=== PATIENT | female | born 1965 | race Caucasian/White ===

== ENCOUNTER 2024-10-30 10:14 | Outpatient (AMB) | payer OTHER, SELFPAY ==
--- NOTE | 2024-10-30 10:14 | A.OFFPC_ITS ---
Vital Signs 10/30/24 10:17 Height 4 ft 11.25 in Weight 155 lb BMI 31.0 BP 140/82 H Blood Pressure Location Rt brachial Pulse 86 Pulse Source Pulse Oximeter Temp 97.0 F Pulse Oximetry (%) 98 Intake Visit Reasons: Irritable bowel syndrome Intake Note: needs mammogram Enamel Drier Required: No Tonal Regulator: Not Required per policy Allergies No Known Allergies Allergy (Verified 10/30/24 11:00) Medication List - Last Reconciled 10/30/24 by Kalyani Kong PA-C dextroamphetamine-amphetamine 15 mg (Adderall) 15 mg PO DAILY dicyclomine 10 mg PO QID PRN loperamide 2 mg PO QID PRN lorazepam (Ativan) 0.5 mg PO BID PRN nicotine (polacrilex) (Nicorette) 4 mg buccal Q2H PFSH Medical History (Updated 10/30/24 @ 11:07 by Kalyani Kong PA-C) Class 1 obesity with body mass index (BMI) of 31.0 to 31.9 in adult Elevated blood pressure reading Annual physical exam Anxiety ADHD Nicotine dependence Breast cancer screening Colon cancer screening Screening for HPV (human papillomavirus) Nausea IBS (irritable bowel syndrome) Social History Patient Tobacco Use Status: Current everyday Tobacco user Tobacco use type: Cigarette e-Cigarette/Vaping Use: Never Used service: No Cognitive needs: No Hearing needs: No Vision needs: No Physical exam (Primary Care) Vital Signs: Last Vital Signs Temp 97.0 F 10/30/24 10:17 Pulse 86 10/30/24 10:17 BP 140/82 H 10/30/24 10:17 Pulse Ox 98 10/30/24 10:17 Care Plan Goal for BP management: <130/90 Next steps: Patient will monitor her blood pressure for the next 2 weeks and return in 2 weeks with a blood pressure diary. BMI result Body Mass Index 31.0 BMI Assessment/Plan discussion: High BMI High, discussed plan: lifestyle, weight reduction, dietary, physical activity and alcohol moderation Tobacco cessation counseling provided: Yes Items discussed: Nicotine replacement CPT code: 21426 - Greater than 10 minutes Coding Level of Care Code New Pt Prev Care 40-64y(07763) Diagnoses IBS (irritable bowel syndrome) K58.9 Nausea R11.0 Colon cancer screening Z12.11 Screening for HPV (human papillomavirus) Z11.51 Breast cancer screening Z12.39 Nicotine dependence F17.200 ADHD F90.9 Anxiety F41.9 Annual physical exam Z00.00 Elevated blood pressure reading R03.0 Class 1 obesity with body mass index (BMI) of 31.0 to 31.9 in adult E66.811; Z68.31 Additional Codes Vital Signs *Quality* - CPT code: 02744 - Greater than 10 minutes ([id number]) Assessment & Plan Assessment & Plan (1) IBS (irritable bowel syndrome): Code(s): K58.9 - Irritable bowel syndrome, unspecified Category: Medical Plan: Will order labs including H pylori testing along with referral to GI to establish care for further evaluation and management. Patient to continue Imodium as needed. Will prescribe Bentyl 10 mg as needed. Condition is chronic and stable continue to monitor. (2) Nausea: Code(s): R11.0 - Nausea Category: Medical Plan: Will order labs including H pylori testing along with referral to GI to establish care for further evaluation and management. Condition is chronic and stable continue to monitor. (3) Colon cancer screening: Code(s): Z12.11 - Encounter for screening for malignant neoplasm of colon Category: Medical Plan: Will place order for Cologuard. (4) Screening for HPV (human papillomavirus): Code(s): Z11.51 - Encounter for screening for human papillomavirus (HPV) Category: Medical Plan: Will refer to OBGYN for HPV screening. (5) Breast cancer screening: Code(s): Z12.39 - Encounter for other screening for malignant neoplasm of breast Category: Medical Plan: Will refer for mammogram. (6) Nicotine dependence: Code(s): F17.200 - Nicotine dependence, unspecified, uncomplicated Category: Medical Plan: Patient educated on nicotine and smoking cessation and the importance of smoking cessation to decreased cardiac and stroke risk factors along with other chronic diseases. Will prescribed nicotine gum. Condition is chronic and stable continue to monitor. (7) ADHD: Code(s): F90.9 - Attention-deficit hyperactivity disorder, unspecified type Category: Medical Plan: Patient to continue being seen by a psychiatrist. Psychiatrist is currently prescribing Adderall 15 mg daily and 0.5 mg b.i.d. of Ativan. Patient to continue this current regimen. Condition is chronic and stable continue to monitor. (8) Anxiety: Code(s): F41.9 - Anxiety disorder, unspecified Category: Medical Plan: Patient to continue being seen by psychiatrist and continue p.r.n. Ativan 0.5 mg b.i.d.. Condition is chronic and stable continue to monitor. (9) Annual physical exam: Code(s): Z00.00 - Encounter for general adult medical examination without abnormal findings Category: Medical (10) Elevated blood pressure reading: Code(s): R03.0 - Elevated blood-pressure reading, without diagnosis of hypertension Category: Medical Plan: Patient's blood pressure was noted to be elevated at 1 . Patient reports she has never had blood pressure that has been elevated in the past. She reports she was just started on Adderall and smoked a cigarette right before coming in to her appointment today believes it might be related to this. She denies any cardiac or neuro related complaints. Patient will be instructed to return in 2 weeks for recheck blood pressure. She is instructed to check her blood pressure daily for the next 2 weeks and bring into diary and at that next visit in 2 weeks we will determine if patient should be started on antihypertensive. Patient understands and agrees with this plan will continue to monitor. (11) Class 1 obesity with body mass index (BMI) of 31.0 to 31.9 in adult: Code(s): E66.811 - Obesity, class 1; Z68.31 - Body mass index [BMI] 31.0-31.9, adult Category: Medical Plan: Patient to improve her diet and exercise regimen. Condition is chronic and stable continue to monitor. Plan Plan The diagnostic and therapeutic plan for the patient's Irritable Bowel Syndrome includes testing for celiac disease, iron levels, and H. pylori. Bentyl is prescribed to address abdominal cramps. Home blood pressure monitoring is essential to determine if her hypertension requires further intervention. Smoking cessation is crucial, and the patient will use nicotine gum. A dditionally, a mammogram and DEXA scan are ordered for preventative care. A gastroenterology consult is also recommended to ensure comprehensive management of her IBS. Orders: Orders Comprehensive [place]. Panel Fast Today Z00.00 - Encounter for general adult medical examination without abnormal findings Complete Blood Count Auto Diff Today Z00.00 - Encounter for general adult medical examination without abnormal findings Vitamin B1 Today Z00.00 - Encounter for general adult medical examination without abnormal findings IRON PROFILE Today D64.9 - Anemia, unspecified MM screening mammo BI Today Z12.31 - Encounter for screening mammogram for malignant neoplasm of breast C Reactive Protein Today Z00.00 - Encounter for general adult medical examination without abnormal findings Magnesium Today Z00.00 - Encounter for general adult medical examination without abnormal findings Liver Panel Today Z00.00 - Encounter for general adult medical examination without abnormal findings Lipid Panel Today Z00.00 - Encounter for general adult medical examination without abnormal findings Vitamin B12 and Folate Today Z00.00 - Encounter for general adult medical examination without abnormal findings Vitamin D 25-OH Total Today Z00.00 - Encounter for general adult medical examination without abnormal findings Hemoglobin A1c Today Z00.00 - Encounter for general adult medical examination without abnormal findings Ferritin Today D64.9 - Anemia, unspecified H Pylori Breath Test Today R11.0 - Nausea XR DEXA axial skeleton Today M81.0 - Age-related osteoporosis without current pathological fracture Referrals Gastroenterology Referral K58.9 - Irritable bowel syndrome, unspecified, R11.0 - Nausea Cologuard Test Z12.11 - Encounter for screening for malignant neoplasm of colon, Z12.12 - Encounter for screening for malignant neoplasm of rectum [employer]ATE Referral Z11.51 - Encounter for screening for human papillomavirus (HPV) Medications: New dicyclomine 10 mg PO QID PRN 90 caps 1RF abdominal pain nicotine (polacrilex) (Nicorette) 4 mg buccal Q2H 40 ea 3RF Patient Instructions: Patient Instructions - Monitor blood pressure daily at home and record readings. - Continue simethicone for gas relief and start Bentyl as directed. - Obtain fasting blood tests and follow all pre-test instructions. - Schedule and attend the mammogram and DEXA scan appointments. - Use nicotine gum to aid smoking cessation and attempt to reduce cigarette use. - Follow a balanced diet, focusing on simple, non-irritating foods. - Record any significant changes in symptoms or new concerns and attend follow- up visits as scheduled. - Monitor symptoms and seek urgent care if experiencing severe abdominal pain, significant bleeding, or elevated blood pressure with associated symptoms like headache or dizziness. Scribe Plan - Not visible on output: History of Present Illness The patient is a 59-year-old female presenting for a physical examination and exacerbation of Irritable Bowel Syndrome. Her IBS, which began when she was 18, has worsened since April, characterized by dull abdominal pain and frequent loose stools. Notably, she experienced severe attacks requiring emergency department visits, such as an incident in May with rectal bleeding. The patient has a past decision of scar tissue in her small intestine, confirmed during exploratory surgery, and previously experienced intense, stabbing abdominal spasms in her twenties. Current interventions include Imodium and simethicone, with dietary changes attempted although she hasn't been tested for gluten sensitivity or celiac disease. The patient reports occasional nausea which has improved, potentially due to managing gas, and has had concerns regarding her iron levels previously noted to be borderline low. Social History - Housing: Lives alone - Family Status: Three adult children and three grandchildren - Substance Use: Smokes up to five cigarettes per day - Exercise: Attempts to walk regularly - Nutritional Intake: Consumes primarily rice, plain foods, and oatmeal; reducing gluten intake - Weight Management: Reported some weight loss Review of Systems - Gastrointestinal: Reports frequent loose stools, nausea, and abdominal pain. Denies black or bloody stools. - General: Reports some weight loss. - Neurological: Denies dizziness. - Cardiovascular: Denies chest pain. Physical Exam Appearance: Alert. Oriented X3. No acute distress. Head: Normal external exam. Normocephalic. Atraumatic. Eyes: Pupils are equal, round, and reactive to light. Extraocular movements intact. Conjunctiva and sclera normal. Eyelids normal. Ears: External auditory canal normal. Tympanic membranes normal. Throat: Pharynx normal. Uvula midline. Moist mucous membranes. Neck: Normal inspection. Neck supple. Full range of motion. No adenopathy. Thyroid Normal. No meningeal signs. No neck mass noted. Cardiovascular: Normal heart rate and rhythm. Heart sound normal. No murmurs noted. Pulses normal throughout. Respiratory: No respiratory distress. Painless inspiration. Breath sounds normal. No wheezes/rales/rhonchi noted. Chest nontender. No accessory muscle usage noted or decreased air movement noted. Abdomen: Soft and nontender. Bowel sounds normal in all 4 quadrants. No distention noted. No organomegaly noted. Tenderness noted in the abdominal area. Back: No costovertebral angle tenderness. Full range of motion noted. Skin: Skin warm and dry. Normal skin color. Normal skin turgor. No rashes/lesions/lacerations noted. Extremities: No lower extremity edema. Extremities exhibit normal range of motion. Extremities nontender. Neuro: Oriented X 3. No motor deficit. No sensory deficit. Reflexes normal. Plan The diagnostic and therapeutic plan for the patient's Irritable Bowel Syndrome includes testing for celiac disease, iron levels, and H. pylori. Bentyl is prescribed to address abdominal cramps. Home blood pressure monitoring is essential to determine if her hypertension requires further intervention. Smoking cessation is crucial, and the patient will use nicotine gum. Additionally, a mammogram and DEXA scan are ordered for preventative care. A gastroenterology consult is also recommended to ensure comprehensive management of her IBS. Patient was informed and verbally consented to the use of an ambient scribe for clinic note documentation during this visit. Discussion Notes During the visit, we discussed the current exacerbation of the patient's Irritable Bowel Syndrome, noting the need for comprehensive testing including celiac disease and iron studies, along with screening for H. pylori. We reviewed her history with Bentyl and its potential benefit for her current symptoms. Home monitoring of blood pressure was discussed, emphasizing the importance of understanding her hypertension status. The risks and benefits of smoking cessation and employing nicotine replacement therapy were covered. Preventative measures were stressed with upcoming mammograms and a DEXA scan. We discussed the importance of following up with gastroenterology for her chronic IBS management. The patient consented to all proposed diagnostic and therapeutic steps. Patient Instructions - Monitor blood pressure daily at home and record readings. - Continue simethicone for gas relief and start Bentyl as directed. - Obtain fasting blood tests and follow all pre-test instructions. - Schedule and attend the mammogram and DEXA scan appointments. - Use nicotine gum to aid smoking cessation and attempt to reduce cigarette use. - Follow a balanced diet, focusing on simple, non-irritating foods. - Record any significant changes in symptoms or new concerns and attend follow- up visits as scheduled. - Monitor symptoms and seek urgent care if experiencing severe abdominal pain, significant bleeding, or elevated blood pressure with associated symptoms like headache or dizziness.
[2024-10-30 10:17] VITALS: BP 140/82; PULSE 86; TEMP 36.1; O2SAT 98; BMI 31.0
--- OUTSIDE RECORDS SUMMARY | 2024-10-30 11:45 | XMS_ITS | Clinical Summary ---
Author Organization [facility] Address [address] [place] [address] Care Team Providers Care [employer] Lines Account Assistant Name Role Phone Unavailable Primary Care Provider Unavailabl e Social History Tobacco Use Types Packs/Day Years Used Date Smoking Tobacco: Never Assessed Comments Unknown Sex and Gender Information Value Date Recorded Sex Assigned at Not on file Legal Sex Female 6:31 PM EDT Gender Identity Not on file Sexual Orientation Not on file Plan of Treatment Health Maintenance Due Date Last Done Comments Breast Cancer Screening 1965 DTaP,Tdap,and Td Vaccines (1 - Tdap) 1984 Hepatitis B Vaccines (1 of 3 - 19+ 3-dose series) 1984 Cervical Cancer Screening: P ap Smear 1986 Pneumococcal Vaccine: 50+ Ye ars (1 of 1 - PCV) 2015 Zoster Vaccines (1 of 2) 2015 COVID-19 Vaccine ( - 2023-2 5 season) 2024 Influenza Vaccine (#1) 2024 Colorectal Cancer Screening: Colonoscopy 06/24/2024 Depression Screening 06/24/2024 HIV Screening 06/24/2024 Hepatitis C Screening 06/24/2024 Social Influencers of Health Screening 06/24/2024 RSV Immunization Patients 60 + Years Old (1 - 1-dose 75+ series) 2040 HIB Vaccines Aged Out No longer eligi ble based on patient's age to complete this topic HPV Vaccines Aged Out No longer eligi ble based on patient's age to complete this topic Hepatitis A Vaccines Aged Out No long er eligible based on patient's age to complete this topic IPV Vaccines Aged Out No longer eligi ble based on patient's age to complete this topic MMR Vaccines Aged Out No longer eligi ble based on patient's age to complete this topic Meningococcal ACWY Vaccine Aged Out N o longer eligible based on patient's age to complete this topic Meningococcal B Vacine Aged Out No lo nger eligible based on patient's age to complete this topic Pneumococcal Vaccine: Pediat rics (0 to 5 Years) and At-Risk Patients (6 to 64 Years) Aged Out No longer eligible b ased on patient's age to complete this topic RSV Immunization Patients Un brandin 20 months Aged Out No longer eligible b ased on patient's age to complete this topic Varicella Vaccines Aged Out No longer eligible based on patient's age to complete this topic
== END 2024-10-30 11:05 | disposition home or self-care (01) ==
LOC: HO.HMCSH 10:14
PROVIDERS: PCP Internal Medicine; Visit Provider Physician Assistant Medical
DX: Z00.00 Encounter for general adult medical examination without abnormal findings (principal); K58.9 Irritable bowel syndrome, unspecified; R11.0 Nausea; Z12.11 Encounter for screening for malignant neoplasm of colon; Z11.51 Encounter for screening for human papillomavirus (HPV); Z12.39 Encounter for other screening for malignant neoplasm of breast; F17.200 Nicotine dependence, unspecified, uncomplicated; F90.9 Attention-deficit hyperactivity disorder, unspecified type; F41.9 Anxiety disorder, unspecified; R03.0 Elevated blood-pressure reading, without diagnosis of hypertension; E66.811 Obesity, class 1; Z68.31 Body mass index [BMI] 31.0-31.9, adult

== ENCOUNTER → 2024-10-30 10:14 | Outpatient (BNVA) | payer SELFPAY | PROVIDERS: PCP Internal Medicine; Visit Provider Physician Assistant Medical ==

== ENCOUNTER 2024-11-08 11:17 | Outpatient (REF) | payer OTHER, SELFPAY ==
--- OUTSIDE RECORDS SUMMARY | 2024-11-08 13:20 | XMS_ITS | Clinical Summary ---
Author Organization [facility] Address [address] [place] [address] Care Team Providers Care Contract Technical Writer Name Role Phone Unavailable Primary Care Provider [...]
[2024-11-08 13:46] LABS: MANUAL DIFF FLAG NO
[2024-11-08 13:53] LABS: Basophils Percent Auto 0.6 % (0-2); Eosinophils Absolute Auto 0.1 X10*3/uL (0.0-0.4); Eosinophils Percent Auto 0.9 % (0-4); Hematocrit 43.3 % (37.0-47.0); Hemoglobin 14.5 g/dl (12.0-16.0); Imm Gran Abs Auto 0.01 X10*3/uL (0.00-0.03); Imm Gran Pct Auto 0.2 % (0.0-0.4); Lymphocytes Absolute Auto 1.8 X10*3/uL (1.2-4.9); Mean Corpuscular HGB Conc 33.5 g/dl (31.0-35.0); Mean Corpuscular Hemoglobin 31.1 pg (27.0-33.0); Mean Corpuscular Volume 92.9 fL (80.0-98.0); Mean Platelet Volume 11.5 fL (9.4-12.3); Monocytes Absolute Auto 0.4 X10*3/uL (0.1-1.2); Monocytes Percent Auto 6.7 % (2-11); Neutrophils Absolute Auto 3.2 x10*3/uL (2.0-8.3); Neutrophils Percent Auto 58.6 % (45-73); Platelet Count 329 X10*3/uL (160-400); Red Blood Count 4.66 X10*6/uL (4.20-5.50); Red Cell Distribution Width 12.3 % (11.0-16.0); White Blood Count 5.4 X10*3/uL (4.8-10.8)
[2024-11-08 14:04] LABS: Estimated Average Glucose 108 mg/dL; Hemoglobin A1C 137.7274 umol/L; Hemoglobin A1c % 5.4 % (<6.0)
[2024-11-08 14:07] LABS: Alanine Aminotransferase 16 U/L (0-31); Albumin Level 4.3 g/dL (3.5-5.0); Alkaline Phosphatase 74 U/L (39-117); Anion Gap 11 (12-20); Aspartate Amino Transferase 20 U/L (5-31); Bilirubin Direct 0.1 mg/dL (0.0-0.5); Bilirubin Total 0.5 mg/dL (0.0-1.0); Blood Urea Nitrogen 16 mg/dL (9-16); C Reactive Protein 0.13 mg/dL (< or = 0.50); Calcium 9.4 mg/dL (8.4-10.2); Carbon Dioxide 29 mmol/L (22-29); Chloride 105 mmol/L (96-108); Cholesterol 159 mg/dL (<200); Estimated Glomerular Filt Rate > 60; Glucose Random 96 mg/dL (60-115); HDL Cholesterol 36 mg/dL (>40); Iron 78 mcg/dL (30-160); LDL Cholesterol Calculated 99 mg/dL (<100); Magnesium 2.2 mg/dL (1.6-2.6); Percent Iron Saturation 26 % (15-50); Potassium 4.2 mmol/L (3.3-5.1); Sodium 141 mmol/L (135-145); Total Iron Binding Capacity 302 mcg/dL (228-428); Total Protein 7.9 g/dL (6.5-8.0); Triglycerides 122 mg/dL (<150); Unsaturated Iron Binding 224 ug/dL
[2024-11-08 14:34] LABS: Ferritin 55 ng/mL (10-250)
[2024-11-08 14:39] LABS: Folate 14.7 ng/mL (> or = 4.0); Vitamin B12 192 pg/mL (200-900)
[2024-11-09 20:57] LABS: Transglutaminase Ab IgG <1.0 U/mL; Transglutaminase IgA <1.0 U/mL
[2024-11-11 23:17] LABS: Endomysial IgA Antibody Negative (Negative)
[2024-11-17 16:39] LABS: Vitamin B1 13 nmol/L (8-30)
== END 2024-11-08 11:18 | disposition home or self-care (01) ==
LOC: HO.HMGCLDS 11:17
PROVIDERS: PCP Physician Assistant Medical; Visit Provider Physician Assistant Medical
DX: Z00.00 Encounter for general adult medical examination without abnormal findings (principal); R10.9 Unspecified abdominal pain; R11.0 Nausea; K58.9 Irritable bowel syndrome, unspecified; D64.9 Anemia, unspecified; Z13.1 Encounter for screening for diabetes mellitus; Z13.6 Encounter for screening for cardiovascular disorders
CPT/HCPCS: 36415; 80053; 80061; 80076; 82248; 82306; 82607; 82728; 82746; 83036; 83540; 83735; 84425; 85025; 86140; 86231; 86364

== ENCOUNTER 2024-11-09 11:48 | Outpatient (REF) | payer OTHER, SELFPAY ==
--- OUTSIDE RECORDS SUMMARY | 2024-11-09 15:15 | XMS_ITS | Clinical Summary ---
Author Organization [facility] Address [address] [place] [address] Care Team Providers Care Director Of Social Services Name Role Phone Unavailable Primary Care Provider [...]
[2024-11-14 00:18] LABS: Intrinsic Factor Antibodies Negative (Negative)
[2024-11-14 12:19] LABS: Parietal Cell Antibody <=20.0 Unit (<=20.0)
== END 2024-11-09 11:49 | disposition home or self-care (01) ==
LOC: HO.HMGCLDS 11:48
PROVIDERS: PCP Internal Medicine; Visit Provider Physician Assistant Medical
DX: E53.8 Deficiency of other specified B group vitamins (principal)
CPT/HCPCS: 36415; 83516; 86340

== ENCOUNTER 2024-11-13 10:54 | Outpatient (AMB) | payer OTHER, SELFPAY ==
--- NOTE | 2024-11-13 11:00 | MHC.PC.OV ---
Vital Signs 11/13/24 11:04 Height 4 ft 11.25 in Weight 4 lb 11.25 oz BMI 0.9 BP 118/80 Blood Pressure Location Lt brachial Pulse 74 Pulse Source Pulse Oximeter Temp 97.2 F Pulse Oximetry (%) 97 Intake Visit Reasons: 2 week follow up Allergies No Known Allergies Allergy (Verified 11/13/24 13:12) Medication List - Last Reconciled 11/13/24 by Kalyani Kong PA-C cholecalciferol (vitamin D3) 1,250 mcg PO QWEEK 3 months cyanocobalamin (vitamin B-12) 1,000 mcg IM .MONTHLY dextroamphetamine-amphetamine 15 mg (Adderall) 15 mg PO DAILY dicyclomine 10 mg PO QID PRN loperamide 2 mg PO QID PRN lorazepam (Ativan) 0.5 mg PO BID PRN nicotine (polacrilex) (Nicorette) 4 mg buccal Q2H PFSH Medical History (Updated 11/13/24 @ 13:14 by Kalyani Kong PA-C) Blood pressure check Vitamin B 12 deficiency Abdominal cramping Class 1 obesity with body mass index (BMI) of 31.0 to 31.9 in adult Elevated blood pressure reading Annual physical exam Anxiety ADHD Nicotine dependence Breast cancer screening Colon cancer screening Screening for HPV (human papillomavirus) Nausea IBS (irritable bowel syndrome) Social History Patient Tobacco Use Status: Current everyday Tobacco user Tobacco use type: Cigarette Cigarette Packs Per Day: 5 e-Cigarette/Vaping Use: Never Used service: No Cognitive needs: No Hearing needs: No Vision needs: No Physical exam (Primary Care) Vital Signs: Last Vital Signs Temp 97.2 F 11/13/24 11:04 Pulse 74 11/13/24 11:04 BP 118/80 11/13/24 11:04 Pulse Ox 97 11/13/24 11:04 BMI result Body Mass Index 0.9 Tobacco/Smoking Status: Tobacco use Status Patient Tobacco Use Status Current everyday Tobacco 11/13/24 11:01 Tobacco use type Cigarette 11/13/24 11:01 e-Cigarette/Vaping Use Never Used 11/13/24 11:01 Coding Level of Care Code Est Pt Level 4 (33810) Complex EM visit Add On G2211 Diagnoses Anxiety F41.9 Vitamin B 12 deficiency E53.8 Blood pressure check Z01.30 Assessment & Plan Assessment & Plan (1) Anxiety: Code(s): F41.9 - Anxiety disorder, unspecified Category: Medical Plan: Patient currently being followed by Dr. Mark Munoz. Condition is chronic and stable continue to monitor. (2) Vitamin B 12 deficiency: Code(s): E53.8 - Deficiency of other specified B group vitamins Category: Medical Plan: Regular vitamin B12 injections to raise levels with dietary advice also provided. Injection given today and patient taught how to give herself injections. Condition is chronic and stable continue to monitor. (3) Blood pressure check: Code(s): Z01.30 - Encounter for examination of blood pressure without abnormal findings Category: Medical Plan: Blood pressure normal today ever since patient stopped smoking. Condition is stable and no blood pressure medications are indicated at this time will continue to monitor patient's blood pressure at her next visits. Plan Plan Patient was informed and verbally consented to the use of an ambient scribe for clinic note documentation during this visit. 1. Low Vitamin B12 Regular vitamin B12 injections to raise levels with dietary advice also provided. 2. Nicotine Dependence Ongoing abstinence encouraged with potential exploration of therapeutic support if required. 3. Osteoarthritis Symptomatic relief through NSAIDs or therapy if required. 4. Anxiety Disorder Currently being followed by Dr. Mark munoz. Explained to patient she should call the provider and ask for a new appointment and possibly to be started on medication if the patient feels like she needs it at this time. 5. Essential Hypertension Plan continues unchanged due to normalized blood pressure post-smoking cessation, emphasizing continued lifestyle management. Discussion Notes During our discussion, I praised the patient?s positive impact of smoking cessation on her blood pressure, emphasizing the importance of lifestyle adjustments in hypertension management. I revisited her vitamin B12 deficiency treatment, ensuring she had proper instructions for injections. Regarding her anxiety, I proposed a psychiatric referral for effective management strategies although patient reports she currently is being seen by Dr. Mark munoz, acknowledging her past experiences with SSRI adverse reactions. Orders: Orders Zinc Today Z00.00 - Encounter for general adult medical examination without abnormal findings Progesterone Today Z00.00 - Encounter for general adult medical examination without abnormal findings Parathyroid Hormone Intact Today Z00.00 - Encounter for general adult medical examination without abnormal findings Testosterone, Total Today Z00.00 - Encounter for general adult medical examination without abnormal findings Estrogen Today Z00.00 - Encounter for general adult medical examination without abnormal findings Prolactin Today Z00.00 - Encounter for general adult medical examination without abnormal findings Phosphorus Today Z00.00 - Encounter for general adult medical examination without abnormal findings Patient Instructions: Patient Instructions - Continue monitoring blood pressure regularly; report any significant changes. - Maintain abstinence from smoking, noting health benefits. - Follow scheduled vitamin B12 injections and dietary intakes to elevate levels. - Contact for psychiatric consultation regarding anxiety management. - Schedule follow-up in one month or earlier if concerning symptoms develop. Scribe Plan - Not visible on output: History of Present Illness The patient is a 59-year-old female presenting with a follow-up for hypertension and low vitamin B12 levels. Her hypertension appears well-controlled following her decision to cease smoking, which has been an effective lifestyle modification that resulted in stabilized blood pressure without modifications to her medication regimen. She has been dealing with persistently low vitamin B12 levels, she brought in her B12 from the pharmacy so we can assist in teaching her how to give herself B12 injections monthly. Compounded by low HDL cholesterol, her ongoing management includes increasing her dietary intake of foods rich in HDL-boosting nutrients. The patient's past medical history includes anxiety disorder, previously managed with medications such as sertraline but discontinued due to adverse effects. She reports she is currently being followed by Dr. Mark munoz. Is not currently on any medication for her anxiety and will discuss possibly starting a medication with Dr. Mark munoz. Social History - Quit smoking on the 6th of the month - Reports weight changes possibly associated with dietary intake and smoking cessation - call Dr. Correa's office for anxiety concerns - Currently managing hypertension with lifestyle modifications Review of Systems - Neurological: Reports anxiety. - Cardiovascular: Denies changes in blood pressure management since smoking cessation; reports normalized blood pressure. - Musculoskeletal: Denies new joint pain or swelling. - Gastrointestinal: Denies gluten sensitivity or intolerance. Physical Exam Appearance: Alert. Oriented X3. No acute distress. Appears to have lost weight. Head: Normal external exam. Normocephalic. Atraumatic. Eyes: Pupils are equal, round, and reactive to light. Extraocular movements intact. Conjunctiva and sclera normal. Eyelids normal. Ears: External auditory canal normal. Tympanic membranes normal. Throat: Pharynx normal. Uvula midline. Moist mucous membranes. Neck: Normal inspection. Neck supple. Full range of motion. No adenopathy. Thyroid Normal. No meningeal signs. No neck mass noted. Cardiovascular: Normal heart rate and rhythm. Heart sound normal. No murmurs noted. Pulses normal throughout. Respiratory: No respiratory distress. Painless inspiration. Breath sounds normal. No wheezes/rales/rhonchi noted. Chest nontender. No accessory muscle usage noted or decreased air movement noted. Abdomen: Soft and nontender. Bowel sounds normal in all 4 quadrants. No distention noted. No organomegaly noted. No visible injury noted. Back: No costovertebral angle tenderness. Full range of motion noted. Skin: Skin warm and dry. Normal skin color. Normal skin turgor. No rashes/lesions/lacerations noted. Extremities: No lower extremity edema. Extremities exhibit normal range of motion. Extremities nontender. Neuro: Oriented X 3. No motor deficit. No sensory deficit. Reflexes normal. Oxygen saturation improved to 97%. Results - Labs: Vitamin B12 low - Labs: HDL cholesterol low - Other tests: Negative for gluten sensitivity, celiac disease - GFR: 60
[2024-11-13 11:04] VITALS: BP 118/80; PULSE 74; TEMP 36.2; O2SAT 97
--- OUTSIDE RECORDS SUMMARY | 2024-11-13 12:29 | XMS_ITS | Clinical Summary ---
Author Organization [facility] Address [address] [place] [address] Care Team Providers Care Tie Maker Name Role Phone Unavailable Primary Care Provider [...]
== END 2024-11-13 11:43 | disposition home or self-care (01) ==
LOC: HO.HMCSH 10:54
PROVIDERS: PCP Internal Medicine; Visit Provider Physician Assistant Medical
DX: F41.9 Anxiety disorder, unspecified (principal); E53.8 Deficiency of other specified B group vitamins; Z01.30 Encounter for examination of blood pressure without abnormal findings

== ENCOUNTER 2024-11-16 12:50 | Outpatient (REF) | payer OTHER, SELFPAY ==
[2024-11-16 16:37] LABS: Alanine Aminotransferase 13 U/L (0-31); Albumin Level 4.2 g/dL (3.5-5.0); Alkaline Phosphatase 71 U/L (39-117); Anion Gap 11 (12-20); Aspartate Amino Transferase 20 U/L (5-31); Bilirubin Total 0.5 mg/dL (0.0-1.0); Blood Urea Nitrogen 12 mg/dL (9-16); Calcium 9.6 mg/dL (8.4-10.2); Carbon Dioxide 27 mmol/L (22-29); Chloride 104 mmol/L (96-108); Estimated Glomerular Filt Rate > 60; Glucose Fasting 102 mg/dL (60-99); Phosphorus 3.9 mg/dL (2.7-4.5); Potassium 4.1 mmol/L (3.3-5.1); Sodium 138 mmol/L (135-145)
[2024-11-16 16:51] LABS: Parathyroid Hormone Intact 69.6 pg/mL (8.7-77.1)
[2024-11-17 11:58] LABS: Prolactin 2.8 ng/mL
[2024-11-19 22:08] LABS: Zinc 64 mcg/dL (60-130)
[2024-11-21 13:09] LABS: Testosterone, Total 14 ng/dL (2-45)
[2024-11-22 02:13] LABS: Estrogen 40 pg/mL
[2024-11-29 15:19] LABS: Progesterone <0.1 ng/mL
== END 2024-11-16 12:51 | disposition home or self-care (01) ==
LOC: HO.HMGCLDS 12:50
PROVIDERS: PCP Internal Medicine; Visit Provider Physician Assistant Medical
DX: Z00.00 Encounter for general adult medical examination without abnormal findings (principal)
CPT/HCPCS: 36415; 80053; 82672; 83970; 84100; 84144; 84146; 84403; 84630

== ENCOUNTER 2024-12-18 10:35 | Outpatient (AMB) | payer OTHER, SELFPAY ==
--- OUTSIDE RECORDS SUMMARY | 2024-12-18 10:38 | XMS_ITS | Clinical Summary ---
Author Organization [facility] Address [address] [place] [address] Care Team Providers Care Analytics Leader Name Role Phone Unavailable Primary Care Provider [...] Vaccines (1 of 2) 2015 COVID-19 Vaccine (2023-2 5 season) 2024 Colorectal Cancer Screening: Colonoscopy 06/24/2024 Depression Screening 06/24/2024 HIV Screening 06/24/2024 Hepatitis C Screening 06/24/2024 Social Influencers of Health Screening 06/24/2024 Influenza Vaccine (Season Ended) 2025 RSV Immunization Adult Patie nts (1 - 1-dose 75+ series) 2040 HIB [...] age to complete this topic Meningococcal B Vaccine Aged Out No l onger eligible based on patient's age to complete [...]
--- NOTE | 2024-12-18 12:22 | MHC.PC.OV ---
Intake Visit Reasons: VItamin B 12 shot Allergies No Known Allergies Allergy (Verified 12/18/24 12:22) Medication List - Last Reconciled 12/18/24 by Kalyani Kong PA-C cholecalciferol (vitamin D3) 1,250 mcg PO QWEEK 3 months cyanocobalamin (vitamin B-12) 1,000 mcg IM .MONTHLY dextroamphetamine-amphetamine 15 mg (Adderall) 15 mg PO DAILY dicyclomine 10 mg PO QID PRN lactase (Lactaid Fast Act) 9,000 units PO QID PRN loperamide 2 mg PO QID PRN lorazepam (Ativan) 0.5 mg PO BID PRN nicotine (polacrilex) (Nicorette) 4 mg buccal Q2H HPI VItamin B 12 shot HPI Details The patient is a 59-year-old female presenting with symptoms of gastrointestinal disturbance characterized by intermittent nausea, diarrhea, and left-sided lower abdominal pain and tenderness that has been ongoing for several weeks. She reports that these symptoms appear sporadically with no distinct dietary trigger, and she has attempted dietary changes including a low FODMAP diet. Although she consumes dairy products such as cheese and yogurt, she expresses concern about possible lactose intolerance. She is under treatment for Vitamin B12 deficiency but prefers injections over oral supplements due to the former?s stomach-related discomfort. Patient was initially here for B12 injection. Additionally, the patient has a history of anxiety disorder and past sertraline use, which was halted because of gastrointestinal side effects. She is currently engaged in therapy and requests further evaluation. She mentions that her symptoms do not correlate with lactose, as previously tested lactose intolerance had not identified any confirmatory results. Yet, pain and symptoms appear alongside dietary changes, particularly considering her ongoing abdominal distress. The patient denies experiencing black or bloody stools or unintentional weight loss, although she reports increased gaseous episodes that have subsided recently. Social history - The patient is considering a new job. - Has been managing stress related to the recent loss of her dog. - Incorporates therapy into her mental health management. - Maintains dietary practices influenced by possible food intolerance. - Experiences gastrointestinal symptoms that impact day-to-day activity. [facility] Medical History Diarrhea Blood pressure check Vitamin B 12 deficiency Abdominal cramping Class 1 obesity with body mass index (BMI) of 31.0 to 31.9 in adult Elevated blood pressure reading Annual physical exam Anxiety ADHD Nicotine dependence Breast cancer screening Colon cancer screening Screening for HPV (human papillomavirus) Nausea IBS (irritable bowel syndrome) Social History Patient Tobacco Use Status: Current everyday Tobacco user Tobacco use type: Cigarette Cigarette Packs Per Day: 5 e-Cigarette/Vaping Use: Never Used service: No Cognitive needs: No Hearing needs: No Vision needs: No Review of Systems Const Details: - Gastrointestinal: Reports diarrhea, nausea, left lower quadrant abdominal pain. - Psychological: Reports anxiety currently managed with therapy; previous sertraline intake. - Musculoskeletal: Denies unexplained weight loss. - General: Denies black or bloody stools, or other significant changes in weight or appetite. Physical exam (Primary Care) Care Plan Goal for BP management: <130/90 at Goal Tobacco/Smoking Status: Tobacco use Status Patient Tobacco Use Status Current everyday Tobacco 11/13/24 11:01 Tobacco use type Cigarette 11/13/24 11:01 e-Cigarette/Vaping Use Never Used 11/13/24 11:01 Const Other: Appearance: Alert. Oriented X3. No acute distress. Head: Normal external exam. Normocephalic. Atraumatic. Eyes: Pupils are equal, round, and reactive to light. Extraocular movements intact. Conjunctiva and sclera normal. Eyelids normal. Throat: Pharynx normal. Uvula midline. Moist mucous membranes. Neck: Normal inspection. Neck supple. Full range of motion. Cardiovascular: Normal heart rate and rhythm. Heart sound normal. No murmurs noted. Pulses normal throughout. Respiratory: No respiratory distress. Painless inspiration. Breath sounds normal. No wheezes/rales/rhonchi noted. Chest nontender. No accessory muscle usage noted or decreased air movement noted. Abdomen: Soft and mild tenderness to the left lower quadrant without guarding. No distention noted. No organomegaly noted. No visible injury noted. Back: No costovertebral angle tenderness. Full range of motion noted. Skin: Skin warm and dry. Normal skin color. Normal skin turgor. No rashes/lesions/lacerations noted. Extremities: Extremities exhibit normal range of motion. Neuro: Oriented X 3. No motor deficit. No sensory deficit. Reflexes normal. Office Procedures Injection-Therapetic B12 injection given to left deltoid. 1 mL. Patient tolerated procedure well. No complications. Cleaned skin with alcohol prior to procedure. Band-Aid placed. No bleeding noted. Results Reviewed Results Reviewed: - Labs: Previous negative test for celiac disease. - Tests and Diagnostics: Pending tests for H. pylori. Coding Level of Care Code Est Pt Level 3 (13354) Complex EM visit Add On G2211 Diagnoses Vitamin B 12 deficiency E53.8 Diarrhea R19.7 Abdominal cramping R10.9 Nausea R11.0 Assessment & Plan Assessment & Plan (1) Vitamin B 12 deficiency: Code(s): E53.8 - Deficiency of other specified B group vitamins Category: Medical Plan: Patient given 1 mL of B12 injection at this time to left deltoid. Patient tolerated procedure well. No complications. (2) Diarrhea: Code(s): R19.7 - Diarrhea, unspecified Category: Medical Plan: Patient with intermittent nausea, diarrhea and abdominal cramping. Still awaiting GI appointment after referral was placed last month. Patient had negative celiac testing. Will start patient on lactose pills for possible lactose intolerant. Will also order CT scan abdomen pelvis with IV contrast to further evaluate. Condition is new over the past few weeks in stable continue to monitor. (3) Abdominal cramping: Code(s): R10.9 - Unspecified abdominal pain Category: Medical Plan: Patient with intermittent nausea, diarrhea and abdominal cramping. Still awaiting GI appointment after referral was placed last month. Patient had negative celiac testing. Will start patient on lactose pills for possible lactose intolerant. Will also order CT scan abdomen pelvis with IV contrast to further evaluate. Condition is new over the past few weeks in stable continue to monitor. (4) Nausea: Code(s): R11.0 - Nausea Category: Medical Plan: Patient with intermittent nausea, diarrhea and abdominal cramping. Still awaiting GI appointment after referral was placed last month. Patient had negative celiac testing. Will start patient on lactose pills for possible lactose intolerant. Will also order CT scan abdomen pelvis with IV contrast to further evaluate. Condition is new over the past few weeks in stable continue to monitor. Plan Plan Patient was informed and verbally consented to the use of an ambient scribe for clinic note documentation during this visit. 1. Vitamin B12 Deficiency Continue B12 injections. 3. Lactose Intolerance Recommend lactase supplements alongside intake of lactose-rich foods, and adjust diet accordingly for symptom mitigation. 4. Abdominal Pain Schedule CT imaging to explore structural causes, and query bowel movements and diet for potential exacerbating factors. 5. Anxiety Disorder Engage in ongoing therapy, with potential medication reassessment, tailored to the patient?s symptomatology response. 6. Gastrointestinal Disturbance Conduct a symptom and dietary log, proceeding with diagnostic investigations for targeted diagnosis and management. I discussed with the patient the differential diagnosis for her gastrointestinal symptoms, including the potential for lactose intolerance and H. pylori irritation. We considered performing a CT scan to assess for structural abnormalities that could explain her left lower quadrant pain. I emphasized the importance of maintaining a diet journal to identify possible food triggers and supplemented her dietary management with lactase enzymes. For her anxiety disorder, I reiterated the role of therapy and the option to reconsider pharmacotherapy should symptoms persist. Coordination with gastroenterology was addressed, noting the pending referral and ensuring communication with Susi to verify scheduling. Orders: Orders H pylori Ag Stool Today K58.9 - Irritable bowel syndrome, unspecified CT abdomen pelvis w IV con Today K58.9 - Irritable bowel syndrome, unspecified, R10.9 - Unspecified abdominal pain, R11.0 - Nausea, R19.7 - Diarrhea, unspecified Medications: New lactase (Lactaid Fast Act) administer with meals and/or snacks 9,000 units PO QID PRN 90 tabs 0RF lactose intolerance Patient Instructions: - continue B12 injections as prescribed. - Keep a diary monitoring diet and symptoms. - Use lactase pills before consuming dairy products. - Schedule CT scan as soon as possible, and coordinate with gastroenterology for further evaluation. - Continue with therapy sessions, and reach out if anxiety disrupts daily life. - Return for follow-up in three months unless symptoms become severe.
== END 2024-12-18 11:22 | disposition home or self-care (01) ==
LOC: HO.HMCSH 10:36
PROVIDERS: PCP Internal Medicine; Visit Provider Physician Assistant Medical
DX: E53.8 Deficiency of other specified B group vitamins (principal); R19.7 Diarrhea, unspecified; R10.9 Unspecified abdominal pain; R11.0 Nausea

== ENCOUNTER → 2024-12-18 10:35 | Outpatient (BNVA) | payer OTHER, SELFPAY | PROVIDERS: PCP Internal Medicine; Visit Provider Physician Assistant Medical | DX: Z13.89 Encounter for screening for other disorder (principal) ==

== ENCOUNTER 2024-12-27 12:33 | Outpatient (REF) | payer OTHER, SELFPAY ==
--- NOTE | ~2024-12-27 | MM_ITS ---
EXAMINATION: MM SCREENING DIGITAL BREAST TOMOSYNTHESIS, BILATERAL CLINICAL INFORMATION: Screening. Asymptomatic. COMPARISON: Mammography: Comparison is made with available priors TECHNIQUE: Digital breast mammography with tomosynthesis is performed in both the craniocaudal and mediolateral oblique views along with computer-aided detection (CAD). FINDINGS: The breasts are heterogeneously dense, which may obscure small masses (ACR BI-RADS breast composition Category c). Bilateral scattered asymmetries are stable dating back to 2016. There are no significant masses, abnormal calcifications, or other abnormalities. MM/MM tomosynthesis screening BI IMPRESSION: No mammographic evidence of malignancy. ASSESSMENT: BI-RADS BI-RADS 2 - Benign Findings RECOMMENDATION: Routine annual mammography screening. 1 year F/U This examination should not preclude the clinical evaluation of a suspicious palpable abnormality. This patient's information was entered into a reminder system with a target due date for their next mammogram. Electronically signed by: Nanette Rhodes DO 01/01/2025 05:30 PM EDT
--- NOTE | ~2024-12-27 | MM_ITS ---
EXAMINATION: DXA BONE DENSITY AXIAL HISTORY: M81.0 - Age-related osteoporosis without current pathological fracture TECHNIQUE: Compumatrix Dual energy absorptiometry (DEXA) of the lumbar spine, total left hip, and femoral neck was performed. COMPARISON: There are no prior studies for comparison. FINDINGS: The bone mineral density of the lumbar spine is 1.015 with a T-score of -1.4, and a Z-score of -0.2. This is indicative of osteopenia. The bone mineral density of the left total hip is 0.873 with a T-score of -1.1, and a Z-score of -0.2. This is indicative of osteopenia. The bone mineral density of the left femoral neck is 0.830 with a T-score of -1.5, and a Z-score of -0.3. This is indicative of osteopenia. FRACTURE RISK: The FRAX index suggests a risk of major osteoporotic fracture of 7.8%, and of hip fracture 0.6%. MM/XR DEXA axial skeleton IMPRESSION: Based on bone mineral density, and according to World Health Organization (WHO) criteria, the diagnosis is consistent with osteopenia. All bone density values are in grams per centimeter squared (g/cm2). Statistically, 68% of repeat scans fall within 1 SD (+/- 0.010 g/cm2 for AP spine L1-L4) and 1 SD (+/- 0.012 g/cm2 for femur total) FRAX is a trademark of the [employer]'s [employer], a World Health Organization (WHO) Collaborating Center. Electronically signed by: Buzz Dash MD 12/27/2024 02:54 PM EDT
--- OUTSIDE RECORDS SUMMARY | 2024-12-27 13:49 | XMS_ITS | Clinical Summary ---
Author Organization [facility] Address [address] [place] [address] Care Team Providers Care Senior Executive Compensation Analyst Name Role Phone Unavailable Primary Care Provider [...]
== END 2024-12-27 12:34 | disposition home or self-care (01) ==
LOC: HO.MAMMO 12:33
PROVIDERS: PCP Internal Medicine; Visit Provider Physician Assistant Medical
DX: Z12.31 Encounter for screening mammogram for malignant neoplasm of breast (principal); M81.0 Age-related osteoporosis without current pathological fracture
CPT/HCPCS: 77063; 77067; 77080

== ENCOUNTER → 2024-12-27 13:00 | Outpatient (BNV) | payer OTHER, SELFPAY | PROVIDERS: PCP Internal Medicine; Visit Provider Radiology Diagnostic Radiology | DX: E28.39 Other primary ovarian failure (principal) | CPT/HCPCS: 77080 ==

== ENCOUNTER 2025-01-25 09:59 | Outpatient (AMB) | payer OTHER, SELFPAY ==
--- NOTE | 2025-01-25 10:02 | A.OFFVIS_ITS ---
Vital Signs 01/25/25 10:05 Height 5 ft 0.83 in Weight 144 lb 9.972 oz BMI 27.5 BP 112/76 Blood Pressure Location Rt brachial Position Sitting Pulse 82 Pulse Source Pulse Oximeter Pulse Oximetry (%) 98 Oxygen Delivery Method Room Air Intake Visit Reasons: Osteopenia Intake Note: New patient internally referred by PCP Kalyani Kong PA-C for Osteopenia. 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 Accompanied by: Self / Same As Patient Allergies No Known Allergies Allergy (Verified 01/25/25 10:05) Medication List - Last Reconciled 01/25/25 by Buzz Theodore MD cholecalciferol (vitamin D3) 1,250 mcg PO QWEEK 3 months cyanocobalamin (vitamin B-12) 1,000 mcg IM .MONTHLY dextroamphetamine-amphetamine 15 mg (Adderall) 15 mg PO DAILY dicyclomine 10 mg PO QID PRN lactase (Lactaid Fast Act) 9,000 units PO QID PRN loperamide 2 mg PO QID PRN lorazepam (Ativan) 0.5 mg PO BID PRN nicotine (polacrilex) (Nicorette) 4 mg buccal Q2H HPI Comments Details: The patient is a 59-year-old female presenting with concerns related to osteopenia. She reports being referred for evaluation due to low bone density but has not previously received treatment for osteoporosis or osteopenia. She denies any history of fractures or height loss and has no significant family history of osteoporosis or hip fractures. The patient's diet includes calcium sources, but she has not been supplementing with calcium until now. She takes Vitamin D supplements as per her primary care physician's advice, following a low Vitamin D level result. The patient notes a history of IBS, which influences her dietary preferences. Menopause occurred in her early 50s, and she does not currently experience significant menopausal symptoms. She has recently quit smoking and reports no use of medications that could adversely affect bone health, such as proton pump inhibitors or steroids. The patient exercises by walking a few times a week, although recent activity has been limited due to discomfort from previous footwear. First diagnosed in just diagnosed . Not Received treatment in the past . No history of pathologic fracture or ONJ. Has several servings of dietary calcium per day in the form of ice cream , cheese . Not Takes Calcium supplement mg daily in divided doses. Takes 86909 IU of Vitamin D weekly. on this dose for 1>1 yr - Vitamin D 50,000 IU weekly for Vitamin D deficiency. Denies ever using PPI, anticoagulant, antiepileptic or glucocorticoid medication. Not Does weight bearing exercise 3 days per week in the form of walking . The patient engages in walking for exercise, aiming for three times a week. Recently, she has been able to walk one to two times a week due to discomfort from previous footwear. 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 UTD on dental cleanings and sees dentist every 6 months. Has planned upcoming dental work and extractions in Fall 2024 . Ex Tabacco use or ETOH abuse DXA dated 12/27/24 : FINDINGS: The bone mineral density of the lumbar spine is 1.015 with a T-score of -1.4, and a Z-score of -0.2. This is indicative of osteopenia. The bone mineral density of the left total hip is 0.873 with a T-score of -1.1, and a Z-score of -0.2. This is indicative of osteopenia. The bone mineral density of the left femoral neck is 0.830 with a T-score of -1.5, and a Z-score of -0.3. This is indicative of osteopenia. FRACTURE RISK: The FRAX index suggests a risk of major osteoporotic fracture of 7.8%, and of hip fracture 0.6%. MM/XR DEXA axial skeleton IMPRESSION: Based on bone mineral density, and according to World Health Organization (WHO) criteria, the diagnosis is consistent with osteopenia. Labs: [facility] Medical History (Updated 12/29/24 @ 12:16 by Kalyani Kong PA-C) Osteopenia Diarrhea Blood pressure check Vitamin B 12 deficiency Abdominal cramping Class 1 obesity with body mass index (BMI) of 31.0 to 31.9 in adult Elevated blood pressure reading Annual physical exam Anxiety ADHD Nicotine dependence Breast cancer screening Colon cancer screening Screening for HPV (human papillomavirus) Nausea IBS (irritable bowel syndrome) Surgical History (Updated 01/25/25 @ 10:06 by CATERINA Reyez) Hx of tonsillectomy Hx of breast reduction, elective Family History (Updated 01/25/25 @ 10:07 by CATERINA Reyez) Father High blood pressure Paternal Grandmother Arthritis Social History Patient Tobacco Use Status: Current everyday Tobacco user Tobacco use type: Cigarette Cigarette Packs Per Day: 5 e-Cigarette/Vaping Use: Never Used service: No Cognitive needs: No Hearing needs: No Vision needs: No Physical Exam There are no Cushingoid features. Absence of blue sclera. Absence of kyphosis. Thyroid gland is of nl size and weighs 15 gms. There are no thyroid nodules palpated. Lungs CTA. Heart S1 S2 Reg R/R Abdominal exam benign. Muscle strength 5/5 . Examination of spine reveals absence of tenderness on palpation Assessment & Plan Assessment & Plan (1) Osteopenia: Code(s): M85.80 - Other specified disorders of bone density and structure, unspecified site Category: Medical Plan: This 59-year-old white female with a history of low bone mass with partial secondary workup revealing low vitamin-D. We will complete secondary workup Plan is to continue the ergocalciferol but also to add 2000 IU of vitamin D3 once a day in addition to calcium supplementation. We will also complete secondary workup by checking 24 hour urine for calcium and creatinine in about 2 months' time along with thyroid function studies. Assuming the above normalized, FRAX score still places the patient at low risk for fracture a questionable need for pharmacologic therapy. 1. Osteopenia The patient's osteopenia will be managed through lifestyle changes, including weight-bearing exercises and dietary calcium intake. Vitamin D supplementation will be adjusted to a daily dose of 2000 IU, with a follow-up on bone density in two years. 2. Vitamin D Deficiency The patient will continue Vitamin D supplementation, transitioning from a weekly high-dose regimen to a daily maintenance dose. Reassessment of Vitamin D levels will occur in two months. I discussed with the patient the current findings related to her osteopenia and the associated low fracture risk as indicated by her FRAX score. We reviewed the importance of calcium intake and Vitamin D supplementation in managing bone health. I explained the rationale for adjusting her Vitamin D regimen and the plan to reassess levels in two months. We also discussed the influence of IBS on her dietary choices and the importance of maintaining a balanced diet to support bone health. The patient was informed about the non-urgent nature of her condition, emphasizing preventive measures over pharmacologic treatment at this time. Follow-up will include a repeat bone density test in two years unless indicated sooner. - Continue Vitamin D supplementation as instructed, transitioning to a daily dose after three months. - Aim for a total calcium intake of 1200 mg per day through diet and supplements as needed. - Engage in weight-bearing exercises like walking regularly. - - Follow up for repeat Vitamin D level testing in two months. - Schedule a bone density test in two years unless advised otherwise. The patient had an opportunity to ask questions regarding treatment plan. The patient expressed understanding and agreement with the above treatment plan. Patient was informed and verbally consented to the use of an ambient scribe for clinic note documentation during this visit. Orders: Orders Creatinine, 24 Hr Group 2 Months M85.80 - Other specified disorders of bone density and structure, unspecified site Free T4 (Free Thyroxine) 2 Months M85.80 - Other specified disorders of bone density and structure, unspecified site Calcium, 24 Hr Ur 2 Months M85.80 - Other specified disorders of bone density and structure, unspecified site TSH reflex Free T4 2 Months M85.80 - Other specified disorders of bone density and structure, unspecified site Vitamin D 25-OH Total 2 Months M85.80 - Other specified disorders of bone density and structure, unspecified site Medications: Discontinued cholecalciferol (vitamin D3) Discontinued Reason: Doctor's Order 1,250 mcg PO QWEEK 3 months 13 caps 0RF vit d deficiency Coding Level of Care Code New Pt Level 4 (47313) Diagnoses Osteopenia M85.80
[2025-01-25 10:05] VITALS: BP 112/76; PULSE 82; O2SAT 98; BMI 27.5
--- OUTSIDE RECORDS SUMMARY | 2025-01-25 10:20 | XMS_ITS | Clinical Summary ---
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
== END 2025-01-25 10:48 | disposition home or self-care (01) ==
LOC: HO.ENCR 09:59
PROVIDERS: PCP Internal Medicine; Visit Provider Internal Medicine Endocrinology, Diabetes & Metabolism
DX: M85.80 Other specified disorders of bone density and structure, unspecified site (principal)
CPT/HCPCS: 99204

== ENCOUNTER → 2025-01-25 09:59 | Outpatient (BNVA) | payer OTHER, SELFPAY | PROVIDERS: PCP Internal Medicine; Visit Provider Internal Medicine Endocrinology, Diabetes & Metabolism ==

== ENCOUNTER 2025-02-26 07:07 | Outpatient (REF) | payer OTHER, SELFPAY ==
--- NOTE | ~2025-02-26 | CT_ITS ---
CLINICAL HISTORY: R10.9 - Unspecified abdominal pain CT abdomen and pelvis with contrast Comparison: None provided Findings: No consolidation or effusion. The liver is mildly enlarged and low in attenuation. The gallbladder, spleen, adrenal glands and pancreas are unremarkable. The kidneys, ureters and bladder are normal. The uterus demonstrates multiple small fibroids. Mild fecal retention within the colon. No small bowel obstruction or free air. Normal appendix. No acute osseous finding. Impression: Mild fecal retention within the colon. Probable small uterine fibroids. Mild hepatic steatosis and mild hepatomegaly. This document has been electronically signed by: Jabari Deluna MD on 02/28/2025 12:58:30
--- OUTSIDE RECORDS SUMMARY | 2025-02-26 07:09 | XMS_ITS | Clinical Summary ---
Author Organization [facility] Address [address] [place] [address] Care Team Providers Care Craft Coordinator Name Role Phone Unavailable Primary Care Provider [...]
[2025-02-26] MEDS: iohexoL 350 MG/ML 100 ML INFUS..BTL 85 ML IV (10:35)
[2025-02-26] MEDS: Barium Sulfate Oral (Vanilla) 450 ML ORAL.SUSP 900 ML PO (10:51)
[2025-02-26 14:16] LABS: Creatinine POC 0.7 mg/dL (0.5-1.4); GFR POC > 60
== END 2025-02-26 07:08 | disposition home or self-care (01) ==
LOC: HO.CT 07:07
PROVIDERS: PCP Internal Medicine; Visit Provider Physician Assistant Medical
DX: R10.9 Unspecified abdominal pain (principal); R11.0 Nausea; R19.7 Diarrhea, unspecified; K58.9 Irritable bowel syndrome, unspecified
CPT/HCPCS: 74177; 82565; Q9967

== ENCOUNTER → 2025-02-26 07:09 | Outpatient (BNV) | payer OTHER, SELFPAY | PROVIDERS: PCP Internal Medicine; Visit Provider Radiology Vascular & Interventional Radiology | DX: D25.9 Leiomyoma of uterus, unspecified (principal) | CPT/HCPCS: 74177 ==

== ENCOUNTER 2025-04-16 11:29 | Outpatient (REF) | payer OTHER, SELFPAY | END 2025-04-16 11:30 | disposition home or self-care (01) | LOC: HO.LNP 11:29 | PROVIDERS: PCP Internal Medicine; Visit Provider Obstetrics & Gynecology | DX: Z01.419 Encounter for gynecological examination (general) (routine) without abnormal findings (principal); Z11.51 Encounter for screening for human papillomavirus (HPV); D25.9 Leiomyoma of uterus, unspecified | CPT/HCPCS: 87626; 88175 ==

== ENCOUNTER 2025-04-16 11:29 | Outpatient (AMB) | payer OTHER, SELFPAY ==
[2025-04-16 11:33] VITALS: BP 124/86; BMI 25.9
--- NOTE | 2025-04-16 11:33 | A.OFFVIS_ITS ---
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 No complaints. CT scan done recently showed uterine myomas, the patient has no pelvic pain pressure or uterine bleeding. Last Pap/HPV? Last Mammogram was BI-RADS 2 in 12/22 Last Colonoscopy was many years ago, the patient is scheduled to see GI in the coming few weeks [facility] Medical History Osteopenia Diarrhea Blood pressure check Vitamin B 12 deficiency Abdominal cramping Class 1 obesity with body mass index (BMI) of 31.0 to 31.9 in adult Elevated blood pressure reading Annual physical exam Anxiety ADHD Nicotine dependence Breast cancer screening Colon cancer screening Screening for HPV (human papillomavirus) Nausea IBS (irritable bowel syndrome) Surgical History Hx of tonsillectomy Hx of breast reduction, elective Family History Father High blood pressure Paternal Grandmother Arthritis Social History Housing: House Alcohol intake: former Patient Tobacco Use Status: Former Tobacco user Tobacco use type: Cigarette Cigarettes Per Day: 5 e-Cigarette/Vaping Use: Never Used service: Yes Current occupation: [id number] Sexually active: No Sexual orientation: Straight/Heterosexual Gender identity: Female Cognitive needs: No Hearing needs: No Vision needs: No Female Reproductive History Menstrual Age of Menarche: 12 Age of menopause: 55 Total pregnancies: 5 Full term: 3 Ab induced: 2 Date of Mammogram: 12/27/24 ([facility]) History of abnormal mammogram: Yes Review of Systems Const All systems reviewed & are unremarkable except as noted in HPI and below Card Reports as per HPI Resp Reports as per HPI GI Reports as per HPI and Reports no additional complaints Reports as per HPI Physical Exam Vital Signs: Last Vital Signs BP 124/86 04/16/25 11:33 BMI result Body Mass Index 25.9 Const General: cooperative, healthy appearing and comfortable Chest Chest palpation & inspection: normal inspection of the chest and normal palpation of entire chest wall Breast/axilla inspection: normal inspection of the breasts and normal inspection of the axillae Breast/axilla palpation: normal palpation of the breasts, normal palpation of the axillae and no axillary lymphadenopathy Resp Effort & Inspection: normal respiratory effort Auscultation: clear to auscultation bilaterally Percussion: percussion normal Cardio Palpation: normal PMI Rate: regular rate Rhythm: regular rhythm Heart sounds: no murmurs and no rubs Peripheral pulses: Peripheral pulses 2+ throughout GI Inspection: Yes normal to inspection Palpation (GI): Soft to palpation, nontender, no guarding, not rigid and No hepatosplenomegaly present Percussion: Yes normal to percussion Auscultation: normal bowel sounds Rectal Exam - Female: deferred General: Yes bladder normal to palpation External Female Exam: No lesion Speculum Exam - Vagina: normal appearance of the vagina, normal palpation, normal vaginal discharge and not erythematous Speculum Exam - Cervix: normal appearance of the cervix and normal palpation Bimanual exam- vagina & uterus: normal bimanual exam, normal palpation, uterine size normal, bladder normal to palpation, consistency normal and normal palpation Bimanual Exam- Adnexa, other: normal adnexae, no masses and no tenderness Assessment & Plan Assessment & Plan (1) Well woman exam: Code(s): Z01.419 - Encounter for gynecological examination (general) (routine) without abnormal findings Category: Medical Plan: Cotesting done. Instructions given to patient to schedule next screen Mammogram in 11/22. Counseled the patient about the recommended dietary allowance of 1000 mg of Calcium & 600 IU of vitamin D. The patient was instructed to perform monthly self-breast exams and to schedule an annual exam in a year; All questions answered and the patient verbalized understanding. Instructed the patient to schedule annual exam in a year (2) Uterine myoma: Code(s): D25.9 - Leiomyoma of uterus, unspecified Category: Medical Plan: Pelvic ultrasound ordered, instructions given the patient to schedule a follow- up appointment within 2 weeks Orders: Orders US pelvic and transvaginal Today D25.9 - Leiomyoma of uterus, unspecified Coding Level of Care Code New Pt Prev Care 40-64y(58559) Diagnoses Well woman exam Z01.419 Uterine myoma D25.9
--- OUTSIDE RECORDS SUMMARY | 2025-04-16 12:52 | XMS_ITS | Clinical Summary ---
Author Organization [facility] Address [address] [place] [address] Care Team Providers Care Escrow Clerk Name Role Phone Unavailable Primary Care Provider [...] Vaccine ( - 2023-2 5 season) 2024 Colorectal Cancer Screening: Colonoscopy 06/24/2024 HIV Screening 06/24/2024 Hepatitis C Screening 06/24/2024 Social Influencers of Health Screening 06/24/2024 Depression Screening 08/30/2024 Influenza Vaccine (#1) 2025 RSV Immunization Adult Patie nts (1 [...]
== END 2025-04-16 12:03 | disposition home or self-care (01) ==
LOC: HO.HWS 11:29
PROVIDERS: PCP Internal Medicine; Visit Provider Obstetrics & Gynecology
DX: Z01.419 Encounter for gynecological examination (general) (routine) without abnormal findings (principal); D25.9 Leiomyoma of uterus, unspecified
CPT/HCPCS: 99386; 99459